=== PATIENT | male | born 1950 | race Caucasian/White ===

== ENCOUNTER 2023-04-26 20:38 | Emergency (ER) | payer MEDICARE, SELFPAY ==
[2023-04-26] VITALS (11 sets, daily range): BP systolic 122–147; BP diastolic 96–104; PULSE 79–98; RESP 14–27; O2SAT 93–98
--- NOTE | ~2023-04-26 | CT_ITS ---
CT of the Abdomen and Pelvis: Indication: Abdominal pain Technique: 2.5 mm axial scans were obtained through the abdomen and pelvis following intravenous adm inistration of 100 cc of Omnipaque 350. Dose reduction technique was used on this scan by utilizing a utomated exposure control and iterative reconstruction technique. The dose-length product (DLP) was 4 60.44 mGy-cm. Findings: Scans through the lung bases are unremarkable. There is a fat-containing diaphragmatic her reyna at the lateral right lung base region. The liver, spleen, pancreas, gallbladder, right adrenal gland, and kidneys are within normal limits. 1.7 cm left adrenal nodule present. No evidence of aortic aneurysm. No lymphadenopathy. IVC filter p resent. No bowel obstruction or bowel wall thickening. There is no evidence to suggest acute appendicitis. Images through the pelvis are degraded by streak artifact from left hip arthroplasty.. Urinary bladde r grossly unremarkable. No gross pelvic mass identified. No ascites. Impression: No acute abnormality evident. 1.7 cm left adrenal nodule, indeterminate. Consider follow-up MR to assess for adenoma. Fat-containing diaphragmatic hernia at the lateral right lung base region. Reviewed, dictated and finalized at location . Impression: No acute abnormality evident. 1.7 cm left adrenal nodule, indeterminate. Consider follow-up MR to assess for adenoma. Fat-containing diaphragmatic hernia at the lateral right lung base region.
--- NOTE | 2023-04-26 20:55 | ECG_ITS ---
Measurements Intervals [place] Rate: 92 P: 30 VT: 164 QRS: 15 QRSD: 88 T: 50 QT: 361 QTc: 447 Interpretive Statements SINUS RHYTHM NORMAL ECG NO PREVIOUS ECG AVAILABLE FOR COMPARISON Electronically Signed On 05-01-2023 12:06:15 CDT by Ankit Interiano M.D.
[2023-04-26] MEDS: ONDANSETRON INJ 4 MG/2 ML VIAL IV PUSH (22:21)
[2023-04-26] MEDS: SODIUM CHLORIDE 0.9% IV 1,000 ML 999 ML IV CONT (22:21)
[2023-04-26 22:59] LABS: Basophils Percent Auto 0.2 % (0.2-1.2); Eosinophils Percent Auto 0.1 % (0-4.4); Hematocrit 41.8 % (42.0-52.0); Hemoglobin 14.3 g/dL (14.0-18.0); Immature Granulocyte Absolute 0.02 K/mm3 (0.00-0.031); Immature Granulocyte Percent A 0.2 % (0-0.5); Lymphocytes Absolute Auto 0.89 K/mm3 (0.9-3.2); Lymphocytes Percent Auto 8.7 % (18.3-44.2); Mean Corpuscular HGB Conc 34.2 g/dl (32-36); Mean Corpuscular Volume 90.7 fl (80-100); Mean Platelet Volume 9.9 fl (7.4-10.4); Monocytes Absolute Auto 0.8 K/mm3 (0.1-0.6); Monocytes Percent Auto 7.9 % (2.6-8.5); Neutrophils Absolute Auto 8.5 K/mm3 (1.3-6.7); Neutrophils Percent Auto 82.9 % (45.5-73.1); Platelet Count Result 199 k/mm3 (150-375); Red Blood Count 4.61 M/mm3 (4.6-6.20); White Blood Count 10.2 K/mm3 (4.5-10.0)
[2023-04-26 23:05] LABS: Alanine Aminotransferase 19 U/L (6-50); Albumin Level 3.7 g/dL (3.5-5.1); Alkaline Phosphatase 53 U/L (38-126); Anion Gap 8 mmol/L (8-16); Aspartate Amino Transferase 30 U/L (17-59); Bilirubin,Total 1.5 mg/dL (0.2-1.3); Blood Urea Nitrogen 21 mg/dL (9-20); Calcium 7.9 mg/dL (8.4-10.2); Carbon Dioxide 22 mmol/L (22-30); Chloride 108 mmol/L (98-107); Estimated CRCL calculation 85 ml/min; Estimated Glomerular Filt Rate > 60; Glucose 98 mg/dL (65-110); Lactic Acid Reflex 0.8 mmol/L (0.7-2.0); Lipase 573 U/L (23-300); Potassium 3.5 mmol/L (3.4-5.0); Sodium 138 mmol/L (137-145)
[2023-04-26] MEDS: MORPHINE SULFATE (*CRX) 4 MG/ML INJ IV PUSH (23:27)
[2023-04-27] VITALS (14 sets, daily range): BP systolic 142–147; BP diastolic 96–122; PULSE 72–87; RESP 12–24; O2SAT 93–99
[2023-04-27 01:02] LABS: Appearance Urine Clear (Clear); Bacteria Urine None Seen /hpf; Bilirubin Urine Negative (Negative); Blood Urine Negative (Negative); Color Urine Yellow (Yellow); Glucose Urine UA Negative (Negative); Ketones Urine 2+ mg/dL (Negative); Leukocyte Esterase Ur Negative LEU/UL (Negative); Nitrate Urine Negative (Negative); Non Pathogenic Casts 0-2; Protein Urine Trace mg/dL (Negative); RBC Urine 0-2 /hpf (0-2); Squamous Epithelial Cell Urine None seen /hpf (Few); WBC Urine 0-5 /hpf; pH Urine 5.5 (5.0-9.0)
[2023-04-27 01:25] LABS: Specific Grav Ur 1.071 (1.001-1.035)
[2023-04-27 01:26] LABS: Add Urine Microscopic? YES
[2023-04-27] MEDS: ONDANSETRON INJ 4 MG/2 ML VIAL IV PUSH (03:56)
[2023-04-27] MEDS: MORPHINE SULFATE (*CRX) 4 MG/ML INJ 2 MG IV PUSH (04:03)
[2023-04-27] MEDS: SODIUM CHLORIDE 0.9% IV 1,000 ML 999 ML IV CONT (04:03)
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
== END 2023-04-27 06:14 | disposition home or self-care (01) ==
PROVIDERS: Emergency Provider Emergency Medicine; PCP Nurse Practitioner Family
DX: K52.9 Noninfective gastroenteritis and colitis, unspecified (principal); I10 Essential (primary) hypertension; G62.9 Polyneuropathy, unspecified; M21.372 Foot drop, left foot; Z96.642 Presence of left artificial hip joint; F17.210 Nicotine dependence, cigarettes, uncomplicated
CPT/HCPCS: 36415; 74177; 80053; 81001; 83605; 83690; 85025; 93005; 96361; 96374; 96375; 96376; 99284; J2270; J2405; J7030; Q9967

== ENCOUNTER → 2023-06-07 07:43 | Outpatient (CLI) | payer MEDICARE, SELFPAY ==
--- NOTE | ~2023-06-07 | MR_ITS ---
EXAMINATION: MR abdomen wo/w con INDICATION: Left adrenal mass on CT TECHNIQUE: Coronal SSFSE ARC, WATER:coronal LAVA-FLEX, Coronal 2D FIESTA FatSat, Axial SSFSE BH ARC, Axial 3D DualEcho BH, Axial SSFSE-IR, Axial DWI b=500, Axial 2D FIESTA FatSat, pre and dynamic postco ntrast Axial LAVA ARC, postcontrast Coronal In and Opposed phase LAVA FLEX COMPARISON: CT, 04/26/2023 CONTRAST: Multihance, 15 cc FINDINGS: A fat-containing right lateral diaphragmatic hernias again noted. The liver and pancreas ar e normal. 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 Stones are present in the nondistended ga llbladder. The right adrenal gland is normal. There is a 1.7 cm T1 and T2 isointense mass of the left adrenal gland. The mass demonstrates mild enhancement after contrast administration. Cysts of the ki dneys measure up to 1.5 cm on the left. There is an umbilical hernia containing fat. There are no pat hologically enlarged abdominal lymph nodes. No dilated loops of bowel are evident. IMPRESSION: 1. Left adrenal mass which is probably benign in the absence of known malignancy reflecting a lipid p oor adenoma. Follow-up adrenal protocol CT or MRI in 12 months is recommended. 2. Cholelithiasis. Reviewed, dictated and finalized at location B. IMPRESSION: 1. Left adrenal mass which is probably benign in the absence of known malignanc y reflecting a lipid poor adenoma. Follow-up adrenal protocol CT or MRI in 12 m ont is recommended. 2. Cholelithiasis.
== END ==
PROVIDERS: PCP Nurse Practitioner Family; Visit Provider Nurse Practitioner Family
DX: E27.8 Other specified disorders of adrenal gland (principal); K80.20 Calculus of gallbladder without cholecystitis without obstruction; D35.02 Benign neoplasm of left adrenal gland
CPT/HCPCS: 74183; A9577

== ENCOUNTER 2024-11-30 07:45 | Emergency (ER) | payer MEDICARE, SELFPAY ==
--- NOTE | ~2024-11-30 | XR_ITS ---
XR humerus LT Ordering provider: Zeina Forde MD History: . FALL, L ARM INJURY, HX PREVIOUS SURGERY . Comparison: None. FINDINGS: BONES: Postoperative changes in the midshaft of the left humerus. Healing fracture is noted. Postoper ative changes in the proximal humerus. JOINT SPACES: Slight narrowing of the glenohumeral joint. SOFT TISSUES: Normal. IMPRESSION: No acute osseous abnormality left humerus. Postoperative changes in the midshaft of the left humerus. Reviewed, dictated and finalized at location A. [employer]
[2024-11-30 07:51] VITALS: BP 126/87; PULSE 96; RESP 16; TEMP 36.8; O2SAT 98
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
== END 2024-11-30 09:26 | disposition home or self-care (01) ==
PROVIDERS: Emergency Provider Physician Assistant; PCP Nurse Practitioner Family
DX: M25.512 Pain in left shoulder (principal); W01.198A Fall on same level from slipping, tripping and stumbling with subsequent striking against other object, initial encounter; F12.90 Cannabis use, unspecified, uncomplicated; Z87.891 Personal history of nicotine dependence
CPT/HCPCS: 73060; 99283; A4565